=== PATIENT | female | born 1975 | race Caucasian/White ===

== ENCOUNTER → 2020-04-10 | Outpatient (CLI) | payer MEDICAID ==
--- NOTE | 2020-04-13 08:40 | MM ---
Reason for exam: additional evaluation requested from prior study. History: Family history of breast cancer in cousin at age 50. Excisional biopsy of the left breast, 2002. Took hormonal contraceptives for 2 years. Physical Findings: Nurse did not find any significant physical abnormalities on exam. MG 3D Diag Mammo W/Cad RADHA Bilateral CC and MLO view(s) were taken. No prior studies available for comparison. The breast tissue is extremely dense which could obscure a lesion on mammography. There is no discrete abnormality. These results were verbally communicated with the patient and result sheet given to the patient on 04/10/20. ASSESSMENT: Benign, BI-RAD 2 RECOMMENDATION: Routine screening mammogram of both breasts in 1 year. Manage on a clinical basis with regard to right subareolar palpable.
--- NOTE | 2020-04-13 08:42 | USB ---
Reason for exam: additional evaluation requested from prior study. History: Family history of breast cancer in cousin at age 50. Excisional biopsy of the left breast, 2002. Took hormonal contraceptives for 2 years. US Breast BILAT Right complete breast ultrasound includes all four quadrants, the retroareolar region and axilla. Finding demonstrates a 0.7 x 0.5 x 0.6cm oval, cystic lesion at 10 o'clock. Left complete breast ultrasound includes all four quadrants, the retroareolar region and axilla. Finding demonstrates a 0.5 x 0.4 x 0.5cm oval, cystic lesion at 2 o'clock, a 0.5 x 0.4 x 0.7cm oval, cystic lesion at 2 o'clock, a 1.0 x 0.4 x 0.8cm oval, cystic lesion at 4 o'clock and a 1.2 x 0.5 x 0.9cm oval, cystic lesion at 4 o'clock. These results were verbally communicated with the patient and result sheet given to the patient on 04/10/20. ASSESSMENT: Benign, BI-RAD 2 RECOMMENDATION: Routine screening mammogram of both breasts in 1 year. Manage patient on a clinical basis.
== END | disposition home or self-care (01) ==
LOC: RADMAMWWP 14:54
PROVIDERS: ATTEND Family Medicine
DX: N63.20 Unspecified lump in the left breast, unspecified quadrant (principal); N63.10 Unspecified lump in the right breast, unspecified quadrant
CPT/HCPCS: 77062; 77066

== ENCOUNTER 2020-05-12 12:14 | Inpatient (IN) | payer MEDICAID ==
[2020-05-12] MEDS ORDERED: ALBUTEROL HFA INHALER INHALATION STA (13:03)
[2020-05-12] MEDS ORDERED: SODIUM CHLORIDE 0.9% 1,000 ML IV ONE (13:04)
--- NOTE | 2020-05-12 13:23 | ED ---
URI HPI - General Chief Complaint: Upper Respiratory Infection Stated Complaint: COVID testing Time Seen by Provider: 05/12/20 12:20 Source: patient Mode of arrival: ambulatory - History of Present Illness Initial Comments: Patient is a 44-year-old previously healthy female who presents emergency Department with reported cough, shortness of breath and positive covid testing. Patient states that she became symptomatic on Monday. RapidTest on with positive for her. She also developed symptoms with her parents who both also tested positive. She admits to chest pain for the past 2 days. Located substernal without radiation. Denies previous history of cardiac disease. No history of DVT or PE. Patient reports it being dehydrated. States she is barely eat or drink in the past week. Admits to nausea with one episode of vomiting. Denies any abdominal pain or changes in her bowel or bladder habits. She does have a pulse ox at home. States that it has been radiating anywhere from 92-97%. No history of underlying lung conditions. No other alleviating, precipitating or modifying factors - Related Data Previous Rx's Medication Instructions Recorded Ascorbic Acid [Vitamin C] 1,000 mg PO DAILY #0 tab 05/14/20 Zinc Sulfate [Orazinc] 220 mg PO DAILY cap 05/14/20 dexAMETHasone [Hexadrol] 6 mg PO DAILY #12 tab 05/14/20 Allergies Allergy/AdvReac Type Severity Reaction Status Date / Time No Known Allergies Allergy Verified 05/12/20 15:07 Review of Systems ROS Statement: Those systems with pertinent positive or pertinent negative responses have been documented in the HPI. ROS Other: All systems not noted in ROS Statement are negative. Past Medical History Past Medical History: No Reported History History of Any Multi-Drug Resistant Organisms: None Reported Past Surgical History: No Surgical Hx Reported Smoking Status: Never smoker Past Alcohol Use History: None Reported Past Drug Use History: None Reported General Exam General appearance: alert, in no apparent distress Head exam: Present: atraumatic, normocephalic, normal inspection Eye exam: Present: normal appearance, PERRL, EOMI. Absent: scleral icterus, conjunctival injection, periorbital swelling ENT exam: Present: normal exam, mucous membranes moist Neck exam: Present: normal inspection. Absent: tenderness, meningismus, lymphadenopathy Respiratory exam: Present: normal lung sounds bilaterally. Absent: respiratory distress, wheezes, rales, rhonchi, stridor Cardiovascular Exam: Present: regular rate, normal rhythm, normal heart sounds. Absent: systolic murmur, diastolic murmur, rubs, gallop, clicks GI/Abdominal exam: Present: soft, normal bowel sounds. Absent: distended, tenderness, guarding, rebound, rigid Extremities exam: Present: normal inspection, full ROM, normal capillary refill. Absent: tenderness, pedal edema, joint swelling, calf tenderness Back exam: Present: normal inspection Neurological exam: Present: alert, oriented X3, CN II-XII intact Psychiatric exam: Present: normal affect, normal mood Skin exam: Present: warm, dry, intact, normal color. Absent: rash Course Vital Signs 05/12/20 05/12/20 05/12/20 12:20 13:28 13:30 Temperature 98.8 F Pulse Rate 93 Respiratory 18 Rate Blood Pressure 100/69 119/75 O2 Sat by Pulse 97 95 97 Oximetry 05/12/20 05/12/20 05/12/20 14:00 14:30 15:28 Temperature 100.3 F H Pulse Rate 81 88 Respiratory 21 19 Rate Blood Pressure 99/72 101/62 O2 Sat by Pulse 96 96 Oximetry Medical Decision Making - Medical Decision Making Upon arrival patient is placed into room 4. A thorough history and physical exam was performed. Patient is up to continuous pulse ox and cardiac monitoring. 12-lead EKG was performed. Patient is saturating around 94% without oxygen. Laboratories studies were conducted. Portal chest x-ray is performed. Lab studies demonstrate an elevated C-reactive protein. Chest x-ray demonstrates mild chronic parenchymal changes with possible early acute infiltrate in the lateral right mid lung. His results the patient's. Patient will be admitted to Dr. Jones who accepted admission. Patient remained in stable condition and was transported to floor - Lab Data Result diagrams: 05/13/20 05:57 05/13/20 05:57 Lab Results 05/12/20 05/12/20 05/12/20 Range/Units 13:32 13:32 13:32 WBC 4.3 (3.8-10.6) k/uL RBC 5.33 (3.80-5.40) m/uL Hgb 15.4 (11.4-16.0) gm/dL Hct 47.8 H (34.0-46.0) % MCV 89.6 (80.0-100.0) fL MCH 28.9 (25.0-35.0) pg MCHC 32.2 (31.0-37.0) g/dL RDW 12.4 (11.5-15.5) % Plt Count 181 (150-450) k/uL Neutrophils % 77 % Lymphocytes % 14 % Monocytes % 7 % Eosinophils % 1 % Basophils % 0 % Neutrophils # 3.3 (1.3-7.7) k/uL Lymphocytes # 0.6 L (1.0-4.8) k/uL Monocytes # 0.3 (0-1.0) k/uL Eosinophils # 0.0 (0-0.7) k/uL Basophils # 0.0 (0-0.2) k/uL PT 9.9 (9.0-12.0) sec INR 0.9 (<1.2) APTT 28.2 (22.0-30.0) sec D-Dimer 0.28 (<0.60) mg/L FEU Sodium 139 (137-145) mmol/L Potassium 3.9 (3.5-5.1) mmol/L Chloride 102 (98-107) mmol/L Carbon Dioxide 28 (22-30) mmol/L Anion Gap 9 mmol/L BUN 7 (7-17) mg/dL Creatinine 0.76 (0.52-1.04) mg/dL Est GFR (CKD-EPI)AfAm >90 (>60 ml/min/1.73 sqM) Est GFR (CKD-EPI)NonAf >90 (>60 ml/min/1.73 sqM) Glucose 98 (74-99) mg/dL Plasma Lactic Acid Luis Enrique (0.7-2.0) mmol/L Calcium 9.1 (8.4-10.2) mg/dL Magnesium 2.1 (1.6-2.3) mg/dL Ferritin 378.8 H (10.0-291.0) ng/mL Total Bilirubin 0.4 (0.2-1.3) mg/dL AST 27 (14-36) U/L ALT 14 (4-34) U/L Alkaline Phosphatase 66 (38-126) U/L Lactate Dehydrogenase 459 (313-618) U/L C-Reactive Protein 20.5 H (<10.0) mg/L Total Protein 7.2 (6.3-8.2) g/dL Albumin 4.2 (3.5-5.0) g/dL Procalcitonin (0.02-0.09) ng/mL 05/12/20 05/12/20 Range/Units 13:32 13:32 WBC (3.8-10.6) k/uL RBC (3.80-5.40) m/uL Hgb (11.4-16.0) gm/dL Hct (34.0-46.0) % MCV (80.0-100.0) fL MCH (25.0-35.0) pg MCHC (31.0-37.0) g/dL RDW (11.5-15.5) % Plt Count (150-450) k/uL Neutrophils % % Lymphocytes % % Monocytes % % Eosinophils % % Basophils % % Neutrophils # (1.3-7.7) k/uL Lymphocytes # (1.0-4.8) k/uL Monocytes # (0-1.0) k/uL Eosinophils # (0-0.7) k/uL Basophils # (0-0.2) k/uL PT (9.0-12.0) sec INR (<1.2) APTT (22.0-30.0) sec D-Dimer (<0.60) mg/L FEU Sodium (137-145) mmol/L Potassium (3.5-5.1) mmol/L Chloride (98-107) mmol/L Carbon Dioxide (22-30) mmol/L Anion Gap mmol/L BUN (7-17) mg/dL Creatinine (0.52-1.04) mg/dL Est GFR (CKD-EPI)AfAm (>60 ml/min/1.73 sqM) Est GFR (CKD-EPI)NonAf (>60 ml/min/1.73 sqM) Glucose (74-99) mg/dL Plasma Lactic Acid Luis Enrique 1.1 (0.7-2.0) mmol/L Calcium (8.4-10.2) mg/dL Magnesium (1.6-2.3) mg/dL Ferritin (10.0-291.0) ng/mL Total Bilirubin (0.2-1.3) mg/dL AST (14-36) U/L ALT (4-34) U/L Alkaline Phosphatase (38-126) U/L Lactate Dehydrogenase (313-618) U/L C-Reactive Protein (<10.0) mg/L Total Protein (6.3-8.2) g/dL Albumin (3.5-5.0) g/dL Procalcitonin 0.03 (0.02-0.09) ng/mL - EKG Data EKG Comments: EKG demonstrates a sinus rhythm with a ventricular rate of 79. UT interval 108. QRS 76. QTC of 405. No acute ST segment elevations or depressions. Some baseline artifact. No delta wave Disposition Clinical Impression: Cough, COVID-19, Pneumonia Disposition: ADMITTED IP TO THIS HOSP Condition: Stable Is patient prescribed a controlled substance at d/c from ED?: No Decision to Admit Reason: Admit from EC Decision Date: 05/12/20 Decision Time: 14:49
[2020-05-12 14:05] LABS: ALT 14 U/L (4-34); AST 27 U/L (14-36); African American GFR (CKD) >90 (>60 ml/min/1.73 sqM); Albumin 4.2 g/dL (3.5-5.0); Alkaline Phosphatase 66 U/L (38-126); Anion Gap 9 mmol/L; Blood Urea Nitrogen 7 mg/dL (7-17); C Reactive Protein 20.5 mg/L (<10.0); Calcium 9.1 mg/dL (8.4-10.2); Carbon Dioxide 28 mmol/L (22-30); Chloride 102 mmol/L (98-107); Glucose 98 mg/dL (74-99); LDH 459 U/L (313-618); Magnesium 2.1 mg/dL (1.6-2.3); Non-African American GFR(CKD) >90 (>60 ml/min/1.73 sqM); Potassium 3.9 mmol/L (3.5-5.1); Sodium 139 mmol/L (137-145); Total Bilirubin 0.4 mg/dL (0.2-1.3); Total Protein 7.2 g/dL (6.3-8.2)
[2020-05-12 14:09] LABS: Basophils % (A) 0 %; Eosinophils % (A) 1 %; HCT 47.8 % (34.0-46.0); HGB 15.4 gm/dL (11.4-16.0); Lymphocytes # (A) 0.6 k/uL (1.0-4.8); Lymphocytes % (A) 14 %; MCH 28.9 pg (25.0-35.0); MCHC 32.2 g/dL (31.0-37.0); MCV 89.6 fL (80.0-100.0); Mean Platelet Volume 8.2; Monocytes # (A) 0.3 k/uL (0-1.0); Monocytes % (A) 7 %; Neutrophils # (A) 3.3 k/uL (1.3-7.7); Neutrophils % (A) 77 %; Platelet Count 181 k/uL (150-450); RBC 5.33 m/uL (3.80-5.40); RDW 12.4 % (11.5-15.5); WBC 4.3 k/uL (3.8-10.6)
[2020-05-12 14:14] LABS: D-Dimer 0.28 mg/L FEU (<0.60); INR 0.9 (<1.2); Partial Thromboplastin Time 28.2 sec (22.0-30.0); Prothrombin Time 9.9 sec (9.0-12.0)
--- NOTE | 2020-05-12 14:26 | XR ---
EXAMINATION TYPE: XR chest 1V portable DATE OF EXAM: 05/12/2020 COMPARISON: NONE HISTORY: Shortness of breath and cough. Covid 19 Pneumonia. TECHNIQUE: Single AP portable frontal upright view of the chest is obtained. FINDINGS: There is chronic parenchymal change suspected with reticular interstitial prominence with patchy right midlung opacity. The cardiac silhouette size is within normal limits. The osseous str uctures are intact. IMPRESSION: Suspect some mild chronic parenchymal changes, cannot exclude early acute infiltrate lat eral right midlung. Progress two-view chest x-ray advised.
[2020-05-12] MEDS ORDERED: NALOXONE 0.4 MG/ML 1 ML VIAL IV PRN (14:55)
[2020-05-12] MEDS ORDERED: ACETAMINOPHEN TAB 325 MG TAB PO PRN (14:55)
[2020-05-12] MEDS: SODIUM CHLORIDE 0.9% 1,000 ML IV SCH ×2 (15:27→23:28)
[2020-05-12] MEDS ORDERED: DEXAMETHASONE SOD PHOSPHATE 4 MG/ML 1 ML VIAL IV SCH (18:00)
[2020-05-12] MEDS ORDERED: dexAMETHasone 2 MG TAB PO SCH (18:15)
--- NOTE | 2020-05-12 18:31 | P.CNPUL ---
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 Patient's onset of symptoms was 6 days ago, patient had outpatient testing for Covid 19, which was positive. She also reports lightheadedness, anosmia, she had one episode of vomiting. No abdominal pain. Both of her parents also tested positive and had been admitted to the hospital. No previous history of cardiac disease, patient takes no prescription medications. No history of smoking, chronic lung disease. Patient reported being dehydrated. She hardly ate or drank anything in the past week. Pulse ox at home was reading 92-97% on room air. Chest x-ray showed some mild chronic parenchymal changes could not exclude early infiltrate in the lateral right mid lung. Blood work showed lymphopenia, but the lymphocyte count of 0.6, white blood cell count was 4.3, hemoglobin was 15.4, d-dimer was 0.28, electrolytes and renal profile were unremarkable, plasma lactic acid was 1.1, LFTs were within normal limits, LDH was within normal limits at 459, troponin was less than 0.012, CRP was 20.5. Patient was started on IV hydration with 0.9 normal saline infusing at 130 ML per hour, she was started on Decadron, and she was admitted for further treatment. Review of Systems All systems: negative Constitutional: Denies chills, Denies fever Eyes: denies blurred vision, denies pain Ears, nose, mouth and throat: Denies headache, Denies sore throat Cardiovascular: Denies chest pain, Denies shortness of breath Respiratory: Reports cough, Reports dyspnea Gastrointestinal: Denies abdominal pain, Denies diarrhea, Denies nausea, Denies vomiting Genitourinary: Denies dysuria, Denies hematuria Musculoskeletal: Denies myalgias Integumentary: Denies pruritus, Denies rash Neurological: Denies numbness, Denies weakness Psychiatric: Denies anxiety, Denies depression Endocrine: Denies fatigue, Denies weight change Past Medical History Past Medical History: No Reported History History of Any Multi-Drug Resistant Organisms: None Reported Past Surgical History: No Surgical Hx Reported Smoking Status: Never smoker Past Alcohol Use History: None Reported Past Drug Use History: None Reported Medications and Allergies Home Medications Medication Instructions Recorded Confirmed Type No Known Home Medications 05/12/20 05/12/20 History Allergies Allergy/AdvReac Type Severity Reaction Status Date / Time No Known Allergies Allergy Verified 05/12/20 15:07 Physical Exam Vitals: Vital Signs Temp Pulse Resp BP Pulse Ox 05/12/20 15:28 100.3 F H 05/12/20 14:30 88 19 101/62 96 05/12/20 14:00 81 21 99/72 96 05/12/20 13:30 119/75 97 05/12/20 13:28 95 05/12/20 12:20 98.8 F 93 18 100/69 97 Intake and Output 05/12/20 05/12/20 05/12/20 06:59 14:59 22:59 Other: Weight 56.699 kg 56.699 kg GENERAL EXAM: Alert, very pleasant, 44-year-old tall female on room air, with a pulse ox of 96-97% comfortable in no apparent distress. HEAD: Normocephalic/atraumatic. EYES: Normal reaction of pupils, equal size. Conjunctiva pink, sclera white. NOSE: Clear with pink turbinates. THROAT: No erythema or exudates. NECK: No masses, no JVD, no thyroid enlargement, no adenopathy. CHEST: No chest wall deformity. Symmetrical expansion. LUNGS: Equal air entry with no crackles, wheeze, rhonchi or dullness. CVS: Regular rate and rhythm, normal S1 and S2, no gallops, no murmurs, no rubs ABDOMEN: Soft, nontender. No hepatosplenomegaly, normal bowel sounds, no guarding or rigidity. EXTREMITIES: No clubbing, no edema, no cyanosis, 2+ pulses and upper and lower extremities. MUSCULOSKELETAL: Muscle strength and tone normal. SPINE: No scoliosis or deformity SKIN: No rashes CENTRAL NERVOUS SYSTEM: Alert and oriented -3. No focal deficits, tone is normal in all 4 extremities. PSYCHIATRIC: Alert and oriented -3. Appropriate affect. Intact judgment and insight. Results - Laboratory Findings CBC and BMP: 05/12/20 13:32 05/12/20 13:32 PT/INR, D-dimer PT 9.9 sec (9.0-12.0) 05/12/20 13:32 INR 0.9 (<1.2) 05/12/20 13:32 D-Dimer 0.28 mg/L FEU (<0.60) 05/12/20 13:32 Abnormal lab findings: Abnormal Labs 05/12/20 05/12/20 13:32 13:32 Hct 47.8 H Lymphocytes # 0.6 L C-Reactive Protein 20.5 H - Diagnostic Findings Chest x-ray: report reviewed, image reviewed Assessment and Plan Plan: ASSESSMENT: #1. Acute COVID 19 pneumonia, with onset of symptoms 6 days ago, and with positive outpatient COVID 19 PCR test #2. Cough, dyspnea, nausea, lightheadedness, low-grade fever, chest discomfort related to the above #3. Mild lymphopenia related to Covid 19 pneumonia #4. Never smoker Plan: We will continue Decadron at 6 mg daily by mouth, will add Lovenox 40 mg daily subcu, will add melatonin, zinc supplement, vitamin C. Chest x-ray lab work and vital signs have been reviewed, patient was seen and evaluated by Dr. Pearce. We'll continue following inflammatory markers, continue with IV hydration. Monitor oxygenation pattern, febrile pattern. I performed a history & physical examination of the patient and discussed their management with my nurse practitioner, Afsaneh Sy. I reviewed the nurse practitioner's note and agree with the documented findings and plan of care. Lung sounds are positive for diminished breath sounds. The findings and the impression was discussed with the patient. I attest to the documentation by the nurse practitioner. Time with Patient: Greater than 30
[2020-05-12] MEDS ORDERED: dexAMETHasone 2 MG TAB PO ONE (19:00)
[2020-05-12] MEDS: ASCORBIC ACID 500 MG TAB PO SCH (19:32)
[2020-05-12] MEDS: ENOXAPARIN 40 MG/0.4 ML SYRINGE SQ SCH (19:33)
[2020-05-12] MEDS: ZINC SULFATE 220 MG CAP PO SCH (19:33)
[2020-05-12] MEDS: MELATONIN 1 MG TAB PO SCH (21:57)
[2020-05-12 23:27] LABS: Ferritin 378.8 ng/mL (10.0-291.0)
[2020-05-13] MEDS: SODIUM CHLORIDE 0.9% 1,000 ML IV SCH (05:17)
[2020-05-13 06:30] LABS: Basophils % (A) 1 %; Eosinophils % (A) 1 %; HCT 44.7 % (34.0-46.0); Lymphocytes # (A) 0.4 k/uL (1.0-4.8); Lymphocytes % (A) 25 %; MCH 28.3 pg (25.0-35.0); MCHC 31.3 g/dL (31.0-37.0); MCV 90.5 fL (80.0-100.0); Monocytes % (A) 2 %; Neutrophils # (A) 1.1 k/uL (1.3-7.7); Neutrophils % (A) 69 %; Platelet Count 193 k/uL (150-450); RBC 4.94 m/uL (3.80-5.40); RDW 12.2 % (11.5-15.5); WBC 1.5 k/uL (3.8-10.6)
[2020-05-13] MEDS: ZINC SULFATE 220 MG CAP PO SCH (07:50)
[2020-05-13] MEDS: ASCORBIC ACID 500 MG TAB PO SCH (07:50)
[2020-05-13] MEDS: dexAMETHasone 2 MG TAB PO SCH (07:50)
[2020-05-13] MEDS: ENOXAPARIN 40 MG/0.4 ML SYRINGE SQ SCH (07:51)
[2020-05-13] MEDS ORDERED: ZINC SULFATE 220 MG CAP PO SCH (09:00)
[2020-05-13] MEDS ORDERED: ASCORBIC ACID 500 MG TAB PO SCH (09:00)
[2020-05-13 09:47] LABS: African American GFR (CKD) 121.3 (60.0-200.0); Anion Gap 7.2 mmol/L (4.00-12.00); BUN/Creat Ratio 8.57 Ratio (12.00-20.00); C Reactive Protein 1.7 mg/dL (0.0-0.8); Calcium 8.4 mg/dL (8.7-10.3); Carbon Dioxide 25.8 mmol/L (21.6-31.8); Non-African American GFR(CKD) 104.6 (60.0-200.0); Potassium 4.5 mmol/L (3.5-5.5)
--- NOTE | 2020-05-13 14:00 | P.PN ---
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 Patient's onset of symptoms was 6 days ago, patient had outpatient testing for Covid 19, which was positive. She also reports lightheadedness, anosmia, she had one episode of vomiting. No abdominal pain. Both of her parents also tested positive and had been admitted to the hospital. No previous history of cardiac disease, patient takes no prescription medications. No history of smoking, chronic lung disease. Patient reported being dehydrated. She hardly ate or drank anything in the past week. Pulse ox at home was reading 92-97% on room air. Chest x-ray showed some mild chronic parenchymal changes could not exclude early infiltrate in the lateral right mid lung. Blood work showed lymphopenia, but the lymphocyte count of 0.6, white blood cell count was 4.3, hemoglobin was 15.4, d-dimer was 0.28, electrolytes and renal profile were unremarkable, plasma lactic acid was 1.1, LFTs were within normal limits, LDH was within normal limits at 459, troponin was less than 0.012, CRP was 20.5. Patient was started on IV hydration with 0.9 normal saline infusing at 130 ML per hour, she was started on Decadron, and she was admitted for further treatment. Patient is seen today 05/13/2020 in follow-up on the regular medical floor. She is currently resting quite comfortably in bed. Awake and alert in no acute distress. She is maintaining O2 saturations in the 90s on room air. She's afebrile. Hemodynamically stable. White count 1.5. Hemoglobin 14.0. Sodium 141. Potassium 4.5. Creatinine 0.7. Glucose 122. C-reactive protein 1.7. She is continued on dexamethasone, melatonin, zinc, vitamin C, Lovenox. Objective - Vital Signs Vital signs: Vital Signs Temp 98.4 F 05/13/20 07:00 Pulse 75 05/13/20 07:00 Resp 18 05/13/20 07:00 BP 99/60 05/13/20 07:00 Pulse Ox 92 L 05/13/20 07:00 Intake & Output 05/12/20 05/13/2020 18:59 06:59 18:59 Intake Total 1040 Balance 1040 Weight 56.699 kg Intake: IV 1040 Sodium Chloride 0.9% 1, 1040 000 ml @ 130 mls/hr IV . [id number] [facility] Rx#:[id number] Other: # Voids 0 - Exam GENERAL EXAM: Alert, very pleasant 44-year-old female patient, on room air, comfortable in no apparent distress. HEAD: Normocephalic. EYES: Normal reaction of pupils, equal size. NOSE: Clear with pink turbinates. THROAT: No erythema or exudates. NECK: No masses, no JVD. CHEST: No chest wall deformity. LUNGS: Equal air entry with no crackles, wheeze, rhonchi or dullness. CVS: S1 and S2 normal with no audible murmur, regular rhythm. ABDOMEN: No hepatosplenomegaly, normal bowel sounds, no guarding or rigidity. SPINE: No scoliosis or deformity SKIN: No rashes CENTRAL NERVOUS SYSTEM: No focal deficits, tone is normal in all 4 extremities. EXTREMITIES: There is no peripheral edema. No clubbing, no cyanosis. Peripheral pulses are intact. - Labs CBC & Chem 7: 05/13/20 05:57 05/13/20 05:57 Labs: Abnormal Lab Results - Last 24 Hours (Table) 05/12/20 05/12/20 05/13/20 Range/Units 13:32 13:32 05:57 WBC 1.5 L (3.8-10.6) k/uL Hct 47.8 H (34.0-46.0) % Neutrophils # 1.1 L (1.3-7.7) k/uL Lymphocytes # 0.6 L 0.4 L (1.0-4.8) k/uL BUN (9.0-27.0) mg/dL BUN/Creatinine Ratio (12.00-20.00) Ratio Glucose (70-110) mg/dL Calcium (8.7-10.3) mg/dL Ferritin 378.8 H (10.0-291.0) ng/mL C-Reactive Protein 20.5 H (<10.0) mg/L 05/13/20 Range/Units 05:57 WBC (3.8-10.6) k/uL Hct (34.0-46.0) % Neutrophils # (1.3-7.7) k/uL Lymphocytes # (1.0-4.8) k/uL BUN 6.0 L (9.0-27.0) mg/dL BUN/Creatinine Ratio 8.57 L (12.00-20.00) Ratio Glucose 122 H (70-110) mg/dL Calcium 8.4 L (8.7-10.3) mg/dL Ferritin (10.0-291.0) ng/mL C-Reactive Protein 1.7 H (<10.0) mg/L Assessment and Plan Assessment: #1. Acute COVID 19 pneumonia, with onset of symptoms 6 days ago, and with positive outpatient COVID 19 PCR test #2. Cough, dyspnea, nausea, lightheadedness, low-grade fever, chest discomfort related to the above #3. Mild lymphopenia related to Covid 19 pneumonia #4. Never smoker Plan: The patient was seen and evaluated by Dr. Pearce She is cleared for discharge from the pulmonary standpoint Complete 10 days of dexamethasone Maintain isolation precautions Follow-up closely with her PCP I, the cosigning physician, performed a history & physical examination of the patient. Lungs sounds are clear. Maintaining good O2 saturations in the 90s on room air. I discussed the assessment and plan of care with my nurse practitioner, Mariana Arteaga. I attest to the above note as dictated by her.
[2020-05-13] MEDS: MELATONIN 1 MG TAB PO SCH (20:21)
--- NOTE | 2020-05-13 23:06 | P.HPIM ---
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 She reports this started about a week ago with sore throat and anosmia, she did have outpatient testing for COVID19 which was positive. Both of her parents also tested positive and had been admitted to the hospital. No history of smoking, chronic lung disease. Patient reported being dehydrated and hardly ate anything in the past week with pulse ox at home between 92-97% on room air. Chest x-ray showed some mild chronic parenchymal changes could not exclude early infiltrate in the lateral right mid lung. Blood work showed lymphopenia, hemoglobin was 15.4, d- dimer was 0.28, electrolytes and renal profile were unremarkable, plasma lactic acid was 1.1, LFTs were within normal limits, LDH was within normal limits at 459, troponin was less than 0.012, CRP was 20.5. Review of Systems All systems: negative Constitutional: Reports chills, Reports fever, Reports malaise, Reports weakness Eyes: denies blurred vision, denies pain Ears, nose, mouth and throat: Denies headache, Denies sore throat Cardiovascular: Denies chest pain, Denies shortness of breath Respiratory: Reports cough, Reports dyspnea, Reports wheezing Gastrointestinal: Denies abdominal pain, Denies diarrhea, Denies nausea, Denies vomiting Genitourinary: Denies dysuria, Denies hematuria Musculoskeletal: Denies myalgias Integumentary: Denies pruritus, Denies rash Neurological: Denies numbness, Denies weakness Psychiatric: Denies anxiety, Denies depression Endocrine: Denies fatigue, Denies weight change Past Medical History Past Medical History: No Reported History History of Any Multi-Drug Resistant Organisms: None Reported Past Surgical History: No Surgical Hx Reported Smoking Status: Never smoker Past Alcohol Use History: None Reported Past Drug Use History: None Reported Medications and Allergies Home Medications Medication Instructions Recorded Confirmed Type No Known Home Medications 05/12/20 05/12/20 History Allergies Allergy/AdvReac Type Severity Reaction Status Date / Time No Known Allergies Allergy Verified 05/12/20 15:07 Physical Exam Vitals: Vital Signs Temp Pulse Resp BP Pulse Ox 05/13/20 19:46 82 15 05/13/20 19:06 99.2 F 82 15 89/61 93 L 05/13/20 14:19 99.6 F 78 18 92/61 93 L 05/13/20 07:00 98.4 F 75 18 99/60 92 L 05/13/20 04:00 76 16 05/13/20 00:45 99.3 F 76 16 88/55 94 L 05/13/20 00:00 88 16 Intake and Output 05/13/20 05/13/20 05/13/20 06:59 14:59 22:59 Intake Total 1040 Balance 1040 Intake: IV 1040 Sodium Chloride 0.9% 1, 1040 000 ml @ 130 mls/hr IV . Q7H42M [facility] Rx#:[id number] Other: Voiding Method Toilet # Voids 0 General: well nourished, well developed, NAD. Vitals reviewed Eyes: PERRL, EOMI, conjunctiva normal HENT: normocephalic, mucus membranes moist Neck: supple, no JVD Lungs: normal respiratory effort, no wheezes or rales CV: Regular rate and rhythm, no murmur. Peripheral pulses 2+ Abdomen: soft, nondistended, no organomegaly Lymph: no cervical or axillary LAD Skin: warm and dry. Neuro: A&Ox3, normal mood and affect Results CBC & Chem 7: 05/13/20 05:57 05/13/20 05:57 Labs: Abnormal Lab Results - Last 24 Hours (Table) 05/12/20 05/13/20 05/13/20 Range/Units 13:32 05:57 05:57 WBC 1.5 L (3.8-10.6) k/uL Neutrophils # 1.1 L (1.3-7.7) k/uL Lymphocytes # 0.4 L (1.0-4.8) k/uL BUN 6.0 L (9.0-27.0) mg/dL BUN/Creatinine Ratio 8.57 L (12.00-20.00) Ratio Glucose 122 H (70-110) mg/dL Calcium 8.4 L (8.7-10.3) mg/dL Ferritin 378.8 H (10.0-291.0) ng/mL C-Reactive Protein 1.7 H (0.0-0.8) mg/dL Microbiology - Last 24 Hours (Table) 05/12/20 13:32 Blood Culture - Preliminary Blood No Growth after 24 hours Thrombosis Risk Factor Assmnt - Choose All That Apply Any of the Below Risk Factors Present?: Yes Each Factor Represents 1 point: Age 41-60 years Other Risk Factors: No Other congenital or acquired thrombophilia - If yes, enter type in comment: No Thrombosis Risk Factor Assessment Total Risk Factor Score: 1 Thrombosis Risk Factor Assessment Level: Low Risk Assessment and Plan (1) Pneumonia due to COVID-19 virus Current Visit: Yes Status: Acute Code(s): U07.1 - COVID-19; J12.89 - OTHER VIRAL PNEUMONIA SNOMED Code(s): 300663240056431690 (2) COVID-19 Current Visit: Yes Status: Acute Code(s): U07.1 - COVID-19 SNOMED Code(s): 713169426 Plan: 1. COVID 19 pneumonia. Admit and consult pulmonary. Start dexamethasone as well as zinc, vitamin C. Lovenox for DVT prophylasxis
[2020-05-14 01:33] VITALS: TEMP 98.3
[2020-05-14] MEDS: ASCORBIC ACID 500 MG TAB PO SCH (07:50)
[2020-05-14] MEDS: ZINC SULFATE 220 MG CAP PO SCH (07:50)
[2020-05-14] MEDS: ENOXAPARIN 40 MG/0.4 ML SYRINGE SQ SCH (07:50)
[2020-05-14] MEDS: dexAMETHasone 2 MG TAB PO SCH (07:50)
[2020-05-14 07:58] VITALS: BP 93/60; PULSE 70; RESP 16
--- NOTE | 2020-05-14 08:04 | XR ---
EXAMINATION TYPE: XR chest 1V portable DATE OF EXAM: 05/14/2020 CLINICAL HISTORY: COVID. TECHNIQUE: Portable frontal view of the chest. COMPARISON: 05/12/2020 chest radiograph FINDINGS: The cardiomediastinal silhouette is within normal limits for size. Pulmonary vasculature i s normal. The subtle air airspace opacity over the right mid lung is less conspicuous on current exam . No pleural effusion, or pneumothorax seen. The osseous structures are intact. IMPRESSION: Airspace opacity of the right mid lung is less conspicuous on current exam.
--- NOTE | 2020-05-14 13:46 | P.DS ---
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 She reports this started about a week ago with sore throat and anosmia, she did have outpatient testing for COVID19 which was positive. Both of her parents also tested positive and had been admitted to the hospital. No history of smoking, chronic lung disease. Patient reported being dehydrated and hardly ate anything in the past week with pulse ox at home between 92-97% on room air. Chest x-ray showed some mild chronic parenchymal changes could not exclude early infiltrate in the lateral right mid lung. Blood work showed lymphopenia, hemoglobin was 15.4, d-dimer was 0.28, electrolytes and renal profile were unremarkable, plasma lactic acid was 1.1, LFTs were within normal limits, LDH was within normal limits at 459, troponin was less than 0.012, CRP was 20.5. Maintained on dexamethasone, zinc, vitamin C with significant clinical improvement. Patient will be discharged home today in a stable condition with guarded prognosis. The impression and plan of care has been dictated as directed. : I performed a history and examination of this patient, discussed the same with the dictator. I agree with the dictator's note ,documented as a scribe. Any additional findings or plans will be noted. Patient Condition at Discharge: Stable Plan - Discharge Summary New Discharge Prescriptions: New dexAMETHasone [Hexadrol] 6 mg PO DAILY #12 tab Zinc Sulfate [Orazinc] 220 mg PO DAILY cap Ascorbic Acid [Vitamin C] 1,000 mg PO DAILY #0 tab Discharge Medication List Ascorbic Acid [Vitamin C] 1,000 mg PO DAILY #0 tab 05/14/20 [Rx] Zinc Sulfate [Orazinc] 220 mg PO DAILY cap 05/14/20 [Rx] dexAMETHasone [Hexadrol] 6 mg PO DAILY #12 tab 05/14/20 [Rx] Follow up Appointment(s)/Referral(s): Kimmie Roe NPC [Primary Care Provider] - 05/22/20 10:30 am Patient Instructions/Handouts: Community Acquired Pneumonia (DC) Discharge Disposition: HOME SELF-CARE
[2020-05-15 16:37] LABS: LD Isoenzymes 1 21 % (19-38); LD Isoenzymes 2 35 % (30-43); LD Isoenzymes 3 25 % (16-26); LD Isoenzymes 4 9 % (3-12); LD Isoenzymes 5 10 % (3-14); Lactacte Dehydrogenase(LD) ISO 154 U/L (100-200)
== END 2020-05-14 10:48 | disposition home or self-care (01) | DRG 177 ==
LOC: EC 12:14 → 4SSUR 14:55
PROVIDERS: ADMIT Family Medicine; ATTEND Family Medicine
DX: U07.1 COVID-19 (principal); J12.89 Other viral pneumonia; J96.01 Acute respiratory failure with hypoxia; E86.0 Dehydration; R79.82 Elevated C-reactive protein (CRP); D72.810 Lymphocytopenia
CPT/HCPCS: 36415; 71045; 80048; 80053; 82728; 83605; 83615; 83625; 83735; 84145; 84484; 85025; 85379; 85610; 85730; 86140; 87040; 93005; 94640; 96360; 96361; 99285

== ENCOUNTER 2021-02-18 19:37 | Emergency (ER) | payer MEDICAID ==
[2021-02-18 19:44] VITALS: PULSE 67; TEMP 98
[2021-02-18 21:38] LABS: Basophils # (A) 0.1 k/uL (0-0.2); Basophils % (A) 1 %; Eosinophils # (A) 0.2 k/uL (0-0.7); Eosinophils % (A) 2 %; HCT 44.3 % (34.0-46.0); HGB 14.5 gm/dL (11.4-16.0); Lymphocytes # (A) 2.7 k/uL (1.0-4.8); Lymphocytes % (A) 26 %; MCH 29.4 pg (25.0-35.0); MCHC 32.6 g/dL (31.0-37.0); Monocytes # (A) 0.5 k/uL (0-1.0); Monocytes % (A) 5 %; Neutrophils % (A) 66 %; Platelet Count 324 k/uL (150-450); RBC 4.92 m/uL (3.80-5.40); RDW 12.6 % (11.5-15.5); WBC 10.6 k/uL (3.8-10.6)
[2021-02-18 21:46] LABS: Appearance,Urine Clear (Clear); Bacteria,Urine Rare /hpf; Bilirubin,Urine Negative (Negative); Blood,Urine Negative (Negative); Color,Urine Yellow; Glucose,Urine (UA) Negative (Negative); Ketones,Urine Negative (Negative); Leukocyte Esterase,Urine Small (Negative); Mucus,Urine Many /hpf; Nitrite,Urine Negative (Negative); Protein,Urine Trace (Negative); RBC,Urine 3 /hpf (0-5); Specific Gravity,Urine 1.028 (1.001-1.035); Squamous Epithelial Cell,Urine 2 /hpf (0-4); Urobilinogen,Urine <2.0 mg/dL (<2.0); WBC,Urine 2 /hpf (0-5)
[2021-02-18 21:50] LABS: ALT 16 U/L (4-34); AST 21 U/L (14-36); African American GFR (CKD) >90 (>60 ml/min/1.73 sqM); Albumin 4.2 g/dL (3.5-5.0); Alkaline Phosphatase 75 U/L (38-126); Anion Gap 8 mmol/L; Blood Urea Nitrogen 10 mg/dL (7-17); Calcium 9.6 mg/dL (8.4-10.2); Carbon Dioxide 25 mmol/L (22-30); Chloride 104 mmol/L (98-107); Glucose 96 mg/dL (74-99); Lipase 661 U/L (23-300); Non-African American GFR(CKD) >90 (>60 ml/min/1.73 sqM); Potassium 4.1 mmol/L (3.5-5.1); Sodium 137 mmol/L (137-145); Total Bilirubin 0.4 mg/dL (0.2-1.3); Total Protein 6.7 g/dL (6.3-8.2)
[2021-02-18 21:56] LABS: Partial Thromboplastin Time 27.3 sec (22.0-30.0); Prothrombin Time 11.1 sec (9.0-12.0)
[2021-02-18] MEDS: SODIUM CHLORIDE 0.9% 1,000 ML IV STA (22:23)
--- NOTE | 2021-02-18 22:24 | CT ---
EXAMINATION TYPE: CT abdomen pelvis w con DATE OF EXAM: 02/18/2021 COMPARISON: None HISTORY: Abdominal pain, acute, non-localized CT DLP: 659.1 mGycm Automated exposure control for dose reduction was used. CONTRAST: Performed with IV Contrast, patient injected with 100 mL of Isovue 300. Images obtained from the diaphragm to the floor the pelvis with IV contrast. Lung bases are clear of infiltrate. There is no pleural effusion. Heart size is normal. There is no p ericardial effusion. Liver spleen stomach pancreas gallbladder appear normal. The bile ducts are not dilated. There is no adrenal mass. Kidneys show satisfactory contrast opacification. There is no hydronephrosi s. Ureters are not dilated. Appendix appears normal. There is no retroperitoneal adenopathy. Delayed images show normal renal excretion. Bladder distends smoothly. There is 3 cm cyst on the left ovary. There are a few sigmoid diverticula. There is no diverticulitis. Uterus is anteverted. There is 2 cm cyst on the right ovary. There is 1. 5 Praful cortical cyst lower pole left kidney. There is no mesenteric edema. There is no ascites or free air. There is no bowel obstruction. Lumbar vertebra show no compression fracture. There is slight lumbar levoscoliosis. There is narrowing of th e L5-S1 disc space. There is spurring of the endplates. Sacroiliac joints are intact. IMPRESSION: Normal appendix. Bilateral ovarian cysts. Minimal sigmoid diverticulosis. No evidence of acute abdome n and pelvis.
[2021-02-18] MEDS: ONDANSETRON 4 MG/2 ML VIAL IVP STA (23:18)
--- NOTE | 2021-02-18 23:39 | P.GSCN ---
History of Present Illness Consult date: 02/18/21 Reason for Consult: Abdominal pain History of present illness: 45-year-old female presents to the ER with complaints of abdominal pain. Pain b lisa approximately 1 week ago. Initially was present in the lower abdomen but moved to the periumbilical location and maintained at that location for the week. Symptoms waxed and waned somewhat but were persistent and seemed to be worse at night. No nausea or vomiting, no change in appetite. Patient has had normal bowel habits however she does have history of chronic constipation. Patient admits to intermittent rectal bleeding from hemorrhoids. This is also not a new symptom. No history of colonoscopy. No dysuria or hematuria. No vaginal discharge. 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 Describes abdominal bloating that is not improving. Patient was c oncerned about the possibility of bowel obstruction or other abdominal pathology and came to the hospital for further evaluation. Patient had CAT scan performed which shows a 3 cm left ovarian cyst, 2 cm right ovarian cyst, diverticulosis. Patient had an ultrasound performed and those results are pending. Patient's labs are fairly normal with the exception of a lipase of 660. Review of Systems The patient denies any acute changes in vision or hearing, no dysphagia or odynophagia, no chest pain or shortness of breath, no dysuria or hematuria, no headache, no runny nose, no melena, no unexplained weight loss Past Medical History Past Medical History: No Reported History History of Any Multi-Drug Resistant Organisms: None Reported Past Surgical History: No Surgical Hx Reported Smoking Status: Never smoker Past Alcohol Use History: None Reported Past Drug Use History: None Reported Medications and Allergies Home Medications Medication Instructions Recorded Confirmed Type No Known Home Medications 02/18/21 02/18/21 History Allergies Allergy/AdvReac Type Severity Reaction Status Date / Time No Known Allergies Allergy Verified 02/18/21 20:28 Surgical - Exam Vital Signs Temp Pulse Resp BP Pulse Ox 98 F 67 18 122/61 98 02/18/21 19:40 02/18/21 19:40 02/18/21 19:40 02/18/21 19:40 02/18/21 19:40 Physical exam: General: Well-developed, well-nourished HEENT: Normocephalic, sclerae nonicteric Abdomen: Minimal mid abdominal tenderness, nondistended Extremities: No edema Neuro: Alert and oriented Results - Labs 02/18/21 21:08 02/18/21 21:08 Abnormal Lab Results - Last 24 Hours (Table) 02/18/21 02/18/21 Range/Units 21:08 21:08 Lipase 661 H (23-300) U/L Urine Protein Trace H (Negative) Ur Leukocyte Esterase Small H (Negative) Urine Bacteria Rare H (None) /hpf Urine Mucus Many H (None) /hpf Diabetes panel 02/18/21 Range/Units 21:08 Sodium 137 (137-145) mmol/L Potassium 4.1 (3.5-5.1) mmol/L Chloride 104 (98-107) mmol/L Carbon Dioxide 25 (22-30) mmol/L BUN 10 (7-17) mg/dL Creatinine 0.60 (0.52-1.04) mg/dL Glucose 96 (74-99) mg/dL Calcium 9.6 (8.4-10.2) mg/dL AST 21 (14-36) U/L ALT 16 (4-34) U/L Alkaline Phosphatase 75 (38-126) U/L Total Protein 6.7 (6.3-8.2) g/dL Albumin 4.2 (3.5-5.0) g/dL Calcium panel 02/18/21 Range/Units 21:08 Calcium 9.6 (8.4-10.2) mg/dL Albumin 4.2 (3.5-5.0) g/dL Pituitary panel 02/18/21 Range/Units 21:08 Sodium 137 (137-145) mmol/L Potassium 4.1 (3.5-5.1) mmol/L Chloride 104 (98-107) mmol/L Carbon Dioxide 25 (22-30) mmol/L BUN 10 (7-17) mg/dL Creatinine 0.60 (0.52-1.04) mg/dL Glucose 96 (74-99) mg/dL Calcium 9.6 (8.4-10.2) mg/dL Adrenal panel 02/18/21 Range/Units 21:08 Sodium 137 (137-145) mmol/L Potassium 4.1 (3.5-5.1) mmol/L Chloride 104 (98-107) mmol/L Carbon Dioxide 25 (22-30) mmol/L BUN 10 (7-17) mg/dL Creatinine 0.60 (0.52-1.04) mg/dL Glucose 96 (74-99) mg/dL Calcium 9.6 (8.4-10.2) mg/dL Total Bilirubin 0.4 (0.2-1.3) mg/dL AST 21 (14-36) U/L ALT 16 (4-34) U/L Alkaline Phosphatase 75 (38-126) U/L Total Protein 6.7 (6.3-8.2) g/dL Albumin 4.2 (3.5-5.0) g/dL Assessment and Plan (1) Abdominal pain Narrative/Plan: 45yo female with abdominal pain. Etiology unclear at this time. Amylase and CA-125 labs were ordered. Those are pending. Await final ultrasound reading. Patient likely will be discharged from the ER this evening. Outpatient follow- up will be arranged. Current Visit: Yes Status: Acute Code(s): R10.9 - UNSPECIFIED ABDOMINAL PAIN SNOMED Code(s): 09732742
--- NOTE | 2021-02-18 23:50 | US ---
EXAMINATION TYPE: US gallbladder DATE OF EXAM: 02/18/2021 COMPARISON: CT CLINICAL HISTORY: RUQ abdominal pain. RUQ pain x 5 days. EXAM MEASUREMENTS: Liver Length: 14.8 cm Gallbladder Wall: 0.26 cm CBD: 0.46 cm Right Kidney: 10.6 x 4.1 x 4.5 cm Limited due to gas. Pancreas: Tail is obscured by overlying bowel gas. Liver: No abnormalities seen at this time. Gallbladder: Fold seen. Hyperechoic area seen within measurin.5 x 0.3 x 0.2 cm. This area could possibly be attached to the gallbladder wall. Evidence for sonographic Mandel's sign: Patient feels pain throughout abdomen. CBD: Portions seen appear to be wnl. Right Kidney: Limited visibility of lower pole due to gas. Pyramids appear to be prominent. Hyperech oic focus seen measurin.4 x 0.4 x 0.2 cm. IMPRESSION: There are small gallbladder polyp or gallstone. No dilated ducts. No focal liver defect.
--- NOTE | 2021-02-18 23:57 | ED ---
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 She states she does have a history of mild IBS initially thought that this may be the cause of her symptoms, however since Monday she has noticed that she is having intermittent abdominal discomfort that is nonspecific. She is does note that sometimes it is worse in the right lower quadrant. She also notes that sometimes it is worse in the right upper quadrant. However she has noticed that there is bloating associated with it, significantly so 3 days ago that has since resolved. She is tolerating by mouth intake with intermittent nausea. She denies any change in her bowel movements and is still passing gas. Denies any urinary complaints including dysuria or hematuria. Denies any vaginal discharge or bleeding. Denies any chest pain, shortness of breath, fevers, chills, sick contacts. She denies any intra- abdominal surgeries. Due to the persistence of this abdominal discomfort that is abnormal for her, she presents emergency department to be evaluated by our emergency department staff. She describes the pain as achy and relatively nonfocal with intermittent sharp pain in the right lower quadrant and right upper quadrant. She states it is non-radiating. It is never completely gone away since Monday. It is currently and day 5 for symptoms. - Related Data Previous Rx's Medication Instructions Recorded Ondansetron Odt [Zofran Odt] 4 mg PO Q8HR PRN 3 Days #9 tab 02/18/21 Allergies Allergy/AdvReac Type Severity Reaction Status Date / Time No Known Allergies Allergy Verified 02/18/21 20:28 Review of Systems ROS Statement: Those systems with pertinent positive or pertinent negative responses have been documented in the HPI. Review of Systems: CONST: Denies fever EYES: Denies blurry vision ENT: Denies nasal congestion C/V: Denies Chest pain RESP: Denies shortness of breath GI: Endorses abdominal pain : Denies dysuria SKIN: Denies rash. MSK: Denies joint pain. NEURO: Denies headache ROS Other: All systems not noted in ROS Statement are negative. Past Medical History Past Medical History: No Reported History History of Any Multi-Drug Resistant Organisms: None Reported Past Surgical History: No Surgical Hx Reported Smoking Status: Never smoker Past Alcohol Use History: None Reported Past Drug Use History: None Reported General Exam - General Exam Comments Initial Comments: General: Appears in no acute distress. HEAD: Normal with no signs of head trauma. EYES: PERRLA, EOMI, conjunctiva normal, no discharge. ENT: Hearing grossly intact, normal oropharynx. RESPIRATORY: Clear breath sounds bilaterally. No wheezes, rales, or rhonchi. C/V: Regular rate and rhythm. S1 and S2 auscultated, no edema, peripheral pulses 2+ and intact throughout ABD: Abdomen is soft, nondistended. She is mildly tender to palpation in the right lower quadrant. There is no peritoneal signs. There is no rebound tenderness. EXT: Normal range of motion, no obvious deformity SKIN: No rashes or lesions observed on exposed skin. NEURO: Alert and oriented 4. Course Vital Signs 02/18/21 02/19/21 19:40 00:15 Temperature 98 F Pulse Rate 67 Respiratory 18 16 Rate Blood Pressure 122/61 104/64 O2 Sat by Pulse 98 95 Oximetry Medical Decision Making - Medical Decision Making Based on the patient's presentation and physical exam, I'm concerned for acute intra-abdominal process for the patient. Therefore we will obtain abdominal laboratories studies as well as a CT abdomen and pelvis at this time due to her persistent nonfocal acute abdominal pain. She refuses analgesia at this time. She'll be given a 1 L fluid bolus. She was in agreement this plan. Patient's x-ray studies are unremarkable except for an elevated lipase of 661. Urinalysis is a contaminated catch in the setting of no urinary symptoms. She is not .. Amylase is also elevated to 130. Patient's CT abdomen and pelvis revealed a normal appendix with bilateral ovarian cysts. There is diverticulosis without diverticulitis. No other acute findings at this time. Due to the patient's findings of what appears to be acute pancreatitis, did discuss with her obtaining a right upper quadrant ultrasound which she was in agreement. We'll evaluate for gallstones. The patient's surgeon, Dr. Ahumada is in the department and I will also have him evaluated the patient at this time. She is requesting that we obtain a cancer antigen screening as well which will be ordered. Right upper quadrant ultrasound revealed cholelithiasis without signs of cholecystitis. There are no dilated pulse ox and no focal liver defects. Dr. Ahumada evaluated the patient and agreed that the patient likely doesn't require admission the hospital and she is tolerating by mouth intake at this time, does not feel overly nauseous and has her pain under control. He'll evaluate her on an outpatient basis. I did discuss this with the patient and she was in agreement with this plan. I went over the results of her gallbladder imaging in addition to the CT imaging and laboratory studies again prior to discharge and she expressed understanding. I will provide the patient with a prescription for ODT Zofran. I instructed the patient to follow up with their PCP in the next 3 days. I provided contact information for follow up with Dr. Ahumada. I explained that the patient should return to the emergency department if they experience any worsening symptoms. Strict return precautions were discussed with the patient. The patient expressed understanding of these instructions. I answered all questions that the patient had. The patient was discharged home in fair condition with their prescriptions and follow up information. - Lab Data Result diagrams: 02/18/21 21:08 02/18/21 21:08 Lab Results 02/18/21 02/18/21 02/18/21 Range/Units 21:08 21:08 21:08 WBC 10.6 (3.8-10.6) k/uL RBC 4.92 (3.80-5.40) m/uL Hgb 14.5 (11.4-16.0) gm/dL Hct 44.3 (34.0-46.0) % MCV 90.0 (80.0-100.0) fL MCH 29.4 (25.0-35.0) pg MCHC 32.6 (31.0-37.0) g/dL RDW 12.6 (11.5-15.5) % Plt Count 324 (150-450) k/uL MPV 8.0 Neutrophils % 66 % Lymphocytes % 26 % Monocytes % 5 % Eosinophils % 2 % Basophils % 1 % Neutrophils # 7.0 (1.3-7.7) k/uL Lymphocytes # 2.7 (1.0-4.8) k/uL Monocytes # 0.5 (0-1.0) k/uL Eosinophils # 0.2 (0-0.7) k/uL Basophils # 0.1 (0-0.2) k/uL PT 11.1 (9.0-12.0) sec INR 1.0 (<1.2) APTT 27.3 (22.0-30.0) sec Sodium (137-145) mmol/L Potassium (3.5-5.1) mmol/L Chloride (98-107) mmol/L Carbon Dioxide (22-30) mmol/L Anion Gap mmol/L BUN (7-17) mg/dL Creatinine (0.52-1.04) mg/dL Est GFR (CKD-EPI)AfAm (>60 ml/min/1.73 sqM) Est GFR (CKD-EPI)NonAf (>60 ml/min/1.73 sqM) Glucose (74-99) mg/dL Calcium (8.4-10.2) mg/dL Total Bilirubin (0.2-1.3) mg/dL AST (14-36) U/L ALT (4-34) U/L Alkaline Phosphatase (38-126) U/L Total Protein (6.3-8.2) g/dL Albumin (3.5-5.0) g/dL Amylase (30-110) U/L Lipase (23-300) U/L Urine Color Yellow Urine Appearance Clear (Clear) Urine pH 6.0 (5.0-8.0) Ur Specific [place] 1.028 (1.001-1.035) Urine Protein Trace H (Negative) Urine Glucose (UA) Negative (Negative) Urine Ketones Negative (Negative) Urine Blood Negative (Negative) Urine Nitrite Negative (Negative) Urine Bilirubin Negative (Negative) Urine Urobilinogen <2.0 (<2.0) mg/dL Ur Leukocyte Esterase Small H (Negative) Urine RBC 3 (0-5) /hpf Urine WBC 2 (0-5) /hpf Ur Squamous Epith Cells 2 (0-4) /hpf Urine Bacteria Rare H (None) /hpf Urine Mucus Many H (None) /hpf Urine HCG, Qual (Not Detectd) 02/18/21 02/18/21 02/18/21 Range/Units 21:08 21:08 23:27 WBC (3.8-10.6) k/uL RBC (3.80-5.40) m/uL Hgb (11.4-16.0) gm/dL Hct (34.0-46.0) % MCV (80.0-100.0) fL MCH (25.0-35.0) pg MCHC (31.0-37.0) g/dL RDW (11.5-15.5) % Plt Count (150-450) k/uL MPV Neutrophils % % Lymphocytes % % Monocytes % % Eosinophils % % Basophils % % Neutrophils # (1.3-7.7) k/uL Lymphocytes # (1.0-4.8) k/uL Monocytes # (0-1.0) k/uL Eosinophils # (0-0.7) k/uL Basophils # (0-0.2) k/uL PT (9.0-12.0) sec INR (<1.2) APTT (22.0-30.0) sec Sodium 137 (137-145) mmol/L Potassium 4.1 (3.5-5.1) mmol/L Chloride 104 (98-107) mmol/L Carbon Dioxide 25 (22-30) mmol/L Anion Gap 8 mmol/L BUN 10 (7-17) mg/dL Creatinine 0.60 (0.52-1.04) mg/dL Est GFR (CKD-EPI)AfAm >90 (>60 ml/min/1.73 sqM) Est GFR (CKD-EPI)NonAf >90 (>60 ml/min/1.73 sqM) Glucose 96 (74-99) mg/dL Calcium 9.6 (8.4-10.2) mg/dL Total Bilirubin 0.4 (0.2-1.3) mg/dL AST 21 (14-36) U/L ALT 16 (4-34) U/L Alkaline Phosphatase 75 (38-126) U/L Total Protein 6.7 (6.3-8.2) g/dL Albumin 4.2 (3.5-5.0) g/dL Amylase 130 H (30-110) U/L Lipase 661 H (23-300) U/L Urine Color Urine Appearance (Clear) Urine pH (5.0-8.0) Ur Specific [place] (1.001-1.035) Urine Protein (Negative) Urine Glucose (UA) (Negative) Urine Ketones (Negative) Urine Blood (Negative) Urine Nitrite (Negative) Urine Bilirubin (Negative) Urine Urobilinogen (<2.0) mg/dL Ur Leukocyte Esterase (Negative) Urine RBC (0-5) /hpf Urine WBC (0-5) /hpf Ur Squamous Epith Cells (0-4) /hpf Urine Bacteria (None) /hpf Urine Mucus (None) /hpf Urine HCG, Qual Not Detected (Not Detectd) Disposition Clinical Impression: Pancreatitis, Gall stones, Nausea, Abdominal pain Disposition: HOME SELF-CARE Condition: Fair Instructions (If sedation given, give patient instructions): Pancreatitis (ED), Gallstones (ED), Abdominal Pain (ED) Prescriptions: Ondansetron Odt [Zofran Odt] 4 mg PO Q8HR PRN 3 Days #9 tab PRN Reason: Nausea Is patient prescribed a controlled substance at d/c from ED?: No Referrals: None,Stated [Primary Care Provider] - 1-2 days Sorin Ahumada MD [Medical Doctor] - 1-2 days
[2021-02-19 00:18] VITALS: BP 104/64; RESP 16
[2021-02-19 12:58] LABS: Cancer Antigen 125 8.3 U/mL (0.0-30.1)
== END 2021-02-19 00:17 | disposition home or self-care (01) ==
LOC: EC 19:37
DX: K85.90 Acute pancreatitis without necrosis or infection, unspecified (principal); K80.20 Calculus of gallbladder without cholecystitis without obstruction
CPT/HCPCS: 36415; 80053; 86304; 82150; 83690; 85025; 85610; 85730; 81001; 81025; 76705; 74177; 99284; 96374; 96361; J2405; Q9967

== ENCOUNTER 2021-04-30 06:36 | Day surgery (SDC) | payer MEDICAID ==
[2021-04-28 11:02] VITALS: BMI 21.4
[~2021-04-30 06:36] MED LIST: LACTATED RINGERS 1,000 ML IV SCH
[2021-04-30] MEDS ORDERED: LIDOCAINE 1% INJ 10MG/ML (20 ML MDV) ONE (07:23)
[2021-04-30] MEDS ORDERED: PROPOFOL 10 MG/ML 20 ML VIAL IV ONE (07:23)
--- NOTE | 2021-04-30 07:46 | P.PCN ---
Date of Procedure: 04/30/21 Procedure(s) Performed: Brief history: Patient is a pleasant 45-year-old female scheduled for an elective upper endoscopy as well as colonoscopy as a part of evaluation of abdominal discomfort and intermittent rectal bleeding. 3 weeks ago she had an episode of lower abdominal pain and was treated with antibiotics for possible acute sigmoid diverticulitis. Procedure performed: Esophagogastroduodenoscopy with biopsy Colonoscopy Preoperative diagnosis: Upper abdominal discomfort Intermittent rectal bleeding Anesthesia: MAC Procedure: After informed consent was obtained from the patient was brought into the endoscopy unit and IV sedation was administered by anesthesia under continuous monitoring. Initially upper endoscopy was done. The Olympus GF 160 video endoscope was inserted inserted into the mouth and esophagus intubated without any difficulty and was gradually advanced into the stomach and duodenum and carefully examined. The bulb and second part of the duodenum appeared normal. The scope was then withdrawn into the stomach adequately insufflated with air and upon careful examination the antrum had linear areas of erythema which was biopsied. The body, cardia and fundus appeared normal. The scope was then withdrawn into the esophagus. The GE junction was located at 40 cm to the incisors. It appeared regular witone superficial erosion consistent with LA grade a reflux esophagitis.Rest of the esophagus appeared normal. Patient tolerated the procedure well. At this time the patient continued to remain sedation. Initial digital rectal examination was normal. Olympus CF 160 video colonoscope was then inserted into the rectum and gradually advanced to the cecum without any difficulty. Careful examination was performed as the scope was gradually being withdrawn. The prep was excellent. The cecum, ascending colon, transverse colon, descending colon, sigmoid colon and rectum appeared normal. Retroflexion was performed in the rectum andsmall internal hemorrhoidsre noted. Patient tolerated the procedure well. Impression: 1. Upper endoscopy revealed mild antral gastritis and LA grade a reflux esophagitis 2. Colonoscopy revealed scattered sigmoid diverticulosis but no evidence of colorectal neoplasia and small internal hemorrhoids. Recommendations: Findings of this examination were discussed with the patient as well as her family. She was advised to follow with the biopsy results. She will use [id number] H2 blockers as needed for the reflux symptoms. She was advised to be a high-fiber diet and take fiber supplements a regular basis. She can have a repeat screening colonoscopy in 10 years.
[2021-04-30] MEDS ORDERED: LACTATED RINGERS 1,000 ML IV ONE (07:47)
[2021-04-30] MEDS ORDERED: IV FLUID CONTINUATION 900 ML IV ONE (07:47)
[2021-04-30 08:24] VITALS: BP 111/58; PULSE 77; RESP 16; TEMP 98
== END 2021-04-30 08:35 | disposition home or self-care (01) ==
LOC: ORWHC2ENDO 06:36
PROVIDERS: ATTEND Internal Medicine Gastroenterology
DX: K29.50 Unspecified chronic gastritis without bleeding (principal); K21.00 Gastro-esophageal reflux disease with esophagitis, without bleeding; K57.30 Diverticulosis of large intestine without perforation or abscess without bleeding; K62.5 Hemorrhage of anus and rectum; K64.8 Other hemorrhoids
CPT/HCPCS: 81025; 88305; 45378; 43239; J2001; J2704